=== PATIENT | female | born 1935 | race Hispanic/Latino ===

== ENCOUNTER → 2017-12-22 | Outpatient (CLI) | payer MEDICARE | END | disposition home or self-care (01) | LOC: SHCH 09:30 | PROVIDERS: ATTEND Internal Medicine Cardiovascular Disease | DX: I73.9 Peripheral vascular disease, unspecified (principal); I87.2 Venous insufficiency (chronic) (peripheral) | CPT/HCPCS: 93925; 93970 ==

== ENCOUNTER → 2018-06-12 | Outpatient (CLI) | payer MEDICARE | END | disposition home or self-care (01) | LOC: SHCH 10:06 | PROVIDERS: ATTEND Internal Medicine Cardiovascular Disease | DX: I87.2 Venous insufficiency (chronic) (peripheral) (principal) | CPT/HCPCS: 93970 ==

== ENCOUNTER → 2018-08-04 | Outpatient (CLI) | payer MEDICARE | END | disposition home or self-care (01) | LOC: RAH 14:23 | PROVIDERS: ATTEND Internal Medicine Cardiovascular Disease | DX: I70.8 Atherosclerosis of other arteries (principal); M79.604 Pain in right leg; R20.0 Anesthesia of skin | CPT/HCPCS: 93926 ==

== ENCOUNTER 2020-07-25 09:00 | Inpatient (IN) | payer MEDICARE ==
[~2020-07-25] VITALS: Ht 160 cm; Wt 78.4 kg
[2020-07-25 12:20] LABS: EOSINOPHILS % (AUTO) 5.6 % (0.0-8.0); HEMATOCRIT 37.6 % (36-48); LYMPHOCYTES % (AUTO) 25.8 % (21.0-51.0); MEAN CORPUSCULAR HEMOGLOBIN 32.2 pg (27.0-33.0); MEAN CORPUSCULAR VOLUME 94.7 fL (79-99); MONOCYTES % (AUTO) 4.8 % (3.0-13.0); NEUTROPHILS % (AUTO) 62.6 % (40.0-77.0); PLATELET COUNT (AUTO) 252 K/uL (130-400); RED BLOOD CELL COUNT(AUTO) 3.97 MIL/uL (4.00-5.50); RED CELL DISTRIBUTION WIDTH 13.2 % (11.0-15.5); WHITE BLOOD COUNT (AUTO) 6.3 K/uL (4.8-10.8)
[2020-07-25 12:30] LABS: CREATININE 0.9 mg/dL (0.5-1.5); POTASSIUM 4.9 mmol/L (3.5-5.1)
[2020-07-25 12:39] LABS: INR 0.94 (0.85-1.15); PROTHROMBIN TIME 10.1 SEC (9.6-11.6)
[2020-07-25 12:41] LABS: APPEARANCE,URINE SL CLOUDY (CLEAR); BILIRUBIN,URINE NEGATIVE (NEGATIVE); COLOR,URINE YELLOW (YELLOW); GLUCOSE, URINE (UA) NEGATIVE (NEGATIVE); KETONES,URINE NEGATIVE (NEGATIVE); OCCULT BLOOD,URINE MODERATE (NEGATIVE); PH,URINE 7.5 (5.0-8.0); PROTEIN,URINE NEGATIVE (NEGATIVE); UROBILINOGEN,URINE 0.2 mg/dL (0.2-1.0)
[2020-07-25 12:42] LABS: LEUKOCYTE ESTERASE ,URINE LARGE (NEGATIVE); NITRATE,URINE NEGATIVE (NEGATIVE)
[2020-07-25 13:29] LABS: BACTERIA,URINE Moderate /HPF (None Seen); RBC,URINE 0-1 /HPF (0-1)
[2020-07-29 09:04] VITALS: BP 184/62
[2020-07-30] VITALS (21 sets, daily range): BP systolic 124–159; BP diastolic 54–80
[2020-07-30] MEDS ORDERED: LACTATED RINGERS 1000ML 1,000 ML IV ONE (07:30)
[2020-07-30] MEDS: CEFAZOLIN SODIUM 1 GM VIAL IVP SCH ×3 (08:00→20:07)
[2020-07-30] MEDS ORDERED: GENTAMICIN SULFATE 240 MG in SODIUM CHLORIDE 0.9% 100 ML IV PRN (08:00)
[2020-07-30] MEDS ORDERED: CALC600T15 PO (08:21)
[2020-07-30] MEDS ORDERED: MULT-1258 PO (08:21)
[2020-07-30] MEDS ORDERED: ROPI2TAB7 PO (08:21)
[2020-07-30] MEDS ORDERED: BIMA12.5OS OD (08:21)
[2020-07-30] MEDS ORDERED: LEVO88CA4 PO (08:21)
[2020-07-30] MEDS ORDERED: CLOP75TA32 PO (08:21)
[2020-07-30] MEDS ORDERED: TIMO1DRO5 OP (08:21)
[2020-07-30] MEDS ORDERED: LOSA100T58 PO (08:21)
[2020-07-30] MEDS ORDERED: ACET-2123 PO (08:21)
[2020-07-30] MEDS ORDERED: ROPI6TAB2 PO (08:21)
[2020-07-30] MEDS ORDERED: BETA1TAB18 PO (08:21)
[2020-07-30] MEDS ORDERED: AMLO2.5T4 PO (08:21)
[2020-07-30] MEDS ORDERED: ROSU10TA28 PO (08:21)
[2020-07-30] MEDS ORDERED: KETOROLAC TROMETHAMINE 15MG/ML ONE (10:43)
[2020-07-30] MEDS ORDERED: ACETAMINOPHEN EXTRA STRENGTH 500 MG TABLET ONE (10:43)
[2020-07-30] MEDS ORDERED: CELECOXIB 200 MG CAP ONE (10:43)
[2020-07-30] MEDS ORDERED: CEFAZOLIN SODIUM 1 GM VIAL ONE (11:00)
[2020-07-30] MEDS ORDERED: TRANEXAMIC ACID 1000MG/10ML ONE ×2 (11:01→14:58)
[2020-07-30] MEDS ORDERED: PROPOFOL 10 MG/ML 20ML VIAL IV ONE (11:05)
[2020-07-30] MEDS ORDERED: LIDOCAINE PF 2% 5ML ABBOJECT ONE (11:05)
[2020-07-30] MEDS ORDERED: MIDAZOLAM HCL 1 MG/ML 2ML VIAL ONE (11:05)
[2020-07-30] MEDS ORDERED: SUCCINYLCHOLINE CHLORIDE 20 MG/ML 10 ML VIAL ONE (11:05)
[2020-07-30] MEDS ORDERED: DEXAMETHASONE SOD PHOSPHATE 10MG/ML 1ML VIAL ONE (11:05)
[2020-07-30] MEDS ORDERED: GLYCOPYRROLATE 1 MG/5 ML SYRINGE ONE (11:05)
[2020-07-30] MEDS ORDERED: FENTANYL CITRATE PF 50 MCG/1 ML 2ML VIAL ONE (11:06)
[2020-07-30] MEDS ORDERED: ONDANSETRON HCL 4 MG/2 ML VIAL ONE (11:06)
[2020-07-30] MEDS ORDERED: ROCURONIUM 10MG/1ML SYR 10 MG/ML ML ONE (11:06)
[2020-07-30] MEDS ORDERED: NEOSTIGMINE 5MG/5ML SYR IV ONE (11:06)
[2020-07-30] MEDS ORDERED: MEPERIDINE-PF 25 MG/ML SYG ONE (11:07)
[2020-07-30] MEDS ORDERED: ROPIVACAINE 0.5% 5MG/ML 30ML IJ ONE (11:09)
[2020-07-30] MEDS ORDERED: EPHEDRINE SULFATE 50 MG/ML AMPULE ONE (12:33)
[2020-07-30] MEDS ORDERED: HETASTARCH IN 0.9 % NACL 500 ML IV ONE (13:02)
[2020-07-30] MEDS ORDERED: CEFAZOLIN SODIUM 1 GM VIAL IRRIG ONE (13:45)
[2020-07-30] MEDS ORDERED: POTASSIUM CHLORIDE 20 MEQ ERTAB PO PRN (14:45)
[2020-07-30] MEDS ORDERED: ONDANSETRON HCL 4 MG/2 ML VIAL IVP PRN (14:45)
[2020-07-30] MEDS ORDERED: CALCIUM CARBONATE 500 MG TABLET PO PRN (14:45)
[2020-07-30] MEDS ORDERED: POTASSIUM CHLORIDE 10% ELIXIR 20 MEQ/15 ML UDCUP PO PRN (14:45)
[2020-07-30] MEDS ORDERED: KETOROLAC TROMETHAMINE 15MG/ML IV PRN (14:45)
[2020-07-30] MEDS ORDERED: DiphenhydrAMINE HCL 50 MG/ML VIAL IVP PRN (14:45)
[2020-07-30] MEDS: SODIUM CHLORIDE 0.9% 1000ML 1,000 ML IV SCH ×2 (14:45→20:08)
[2020-07-30] MEDS: ACETAMINOPHEN EXTRA STRENGTH 500 MG TABLET PO SCH ×2 (14:45→20:08)
[2020-07-30] MEDS ORDERED: TEMAZEPAM 15 MG CAPSULE PO PRN (14:45)
[2020-07-30] MEDS ORDERED: OXYCODONE HCL 5 MG TAB PO PRN (14:45)
[2020-07-30] MEDS ORDERED: LIDOCAINE HCL-MPF 1% 2ML VIAL IV PRN (14:45)
[2020-07-30] MEDS ORDERED: POTASSIUM CHLORIDE 20MEQ/100ML 100 ML IV PRN (14:45)
[2020-07-30] MEDS ORDERED: ROPINIROLE HCL 1 MG TABLET PO PRN (19:15)
[2020-07-30] MEDS: PREGABALIN 25 MG CAP PO SCH (20:07)
[2020-07-30] MEDS: FAMOTIDINE 20MG TAB 20 MG TAB PO SCH (20:07)
[2020-07-30] MEDS: OXYCODONE HCL 5 MG TAB PO PRN (20:41)
[2020-07-30] MEDS: CELECOXIB 200 MG CAP PO SCH (21:00)
[2020-07-30] MEDS: ATORVASTATIN CALCIUM 20 MG TABLET PO SCH (21:00)
[2020-07-31] VITALS (7 sets, daily range): BP systolic 96–139; BP diastolic 51–64
[2020-07-31] MEDS: OXYCODONE HCL 5 MG TAB PO PRN ×4 (01:51→19:42)
[2020-07-31] MEDS: CEFAZOLIN SODIUM 1 GM VIAL IVP SCH (03:55)
[2020-07-31] MEDS ORDERED: LEVOTHYROXINE 88 MCG TABLET ONE (05:18)
[2020-07-31] MEDS: LEVOTHYROXINE 88 MCG TABLET PO SCH (05:23)
[2020-07-31] MEDS: ACETAMINOPHEN EXTRA STRENGTH 500 MG TABLET PO SCH ×3 (05:23→22:42)
[2020-07-31 05:55] LABS: HEMATOCRIT 26.5 % (36-48); MEAN CORPUSCULAR HEMOGLOBIN 31.3 pg (27.0-33.0); MEAN CORPUSCULAR HGB CONC 33.6 g/dL (32.0-36.0); MEAN CORPUSCULAR VOLUME 93.3 fL (79-99); RED BLOOD CELL COUNT(AUTO) 2.84 MIL/uL (4.00-5.50); RED CELL DISTRIBUTION WIDTH 13.1 % (11.0-15.5)
[2020-07-31 06:14] LABS: CREATININE 0.8 mg/dL (0.5-1.5); POTASSIUM 4.7 mmol/L (3.5-5.1)
[2020-07-31] MEDS: CALCIUM CARBONATE 500 MG TABLET PO SCH (08:19)
[2020-07-31] MEDS: FERROUS FUMARATE 324 MG TABLET PO PRN (08:19)
[2020-07-31] MEDS: LOSARTAN 100 MG TABLET PO SCH (08:19)
[2020-07-31] MEDS: POLYETHYLENE GLYCOL 3350 17 GM POWD.PACK PO SCH (08:19)
[2020-07-31] MEDS: PREGABALIN 25 MG CAP PO SCH ×2 (08:19→19:44)
[2020-07-31] MEDS: CELECOXIB 200 MG CAP PO SCH ×2 (08:20→19:44)
[2020-07-31] MEDS: MULTIVITAMIN WITH MINERALS TABLET PO SCH (08:20)
[2020-07-31] MEDS: FAMOTIDINE 20MG TAB 20 MG TAB PO SCH ×2 (08:21→19:45)
[2020-07-31] MEDS: APIXABAN 2.5 MG TABLET PO SCH ×2 (08:21→19:44)
[2020-07-31] MEDS: AMLODIPINE BESYLATE 2.5 MG TAB PO SCH (08:24)
[2020-07-31] MEDS: MINERALS PO SCH (08:24)
[2020-07-31] MEDS: [UNRECOGNIZED DRUG - OTHER] PO SCH (08:24)
[2020-07-31] MEDS: VIT A C PO SCH (08:24)
[2020-07-31] MEDS: LUTEIN PO SCH (08:24)
[2020-07-31] MEDS: TIMOLOL MALEATE 0.5% 5 ML BOTTLE OP SCH (09:57)
[2020-07-31] MEDS: LATANOPROST 2.5 ML DROPS OD SCH (09:57)
[2020-07-31] MEDS: SODIUM CHLORIDE 0.9% 1000ML 1,000 ML IV SCH (10:45)
[2020-07-31] MEDS: ROPINIROLE HCL 1 MG TABLET PO PRN (18:38)
[2020-07-31] MEDS: ATORVASTATIN CALCIUM 20 MG TABLET PO SCH (19:44)
[2020-08-01 04:21] VITALS: BP 108/53
[2020-08-01] MEDS: OXYCODONE HCL 5 MG TAB PO PRN (05:26)
[2020-08-01] MEDS: LEVOTHYROXINE 88 MCG TABLET PO SCH (05:26)
[2020-08-01] MEDS: ACETAMINOPHEN EXTRA STRENGTH 500 MG TABLET PO SCH ×2 (05:27→14:45)
[2020-08-01 05:33] LABS: HEMATOCRIT 25.7 % (36-48)
[2020-08-01 08:00] VITALS: BP 124/57
[2020-08-01] MEDS: LOSARTAN 100 MG TABLET PO SCH (08:27)
[2020-08-01] MEDS: PREGABALIN 25 MG CAP PO SCH (08:27)
[2020-08-01] MEDS: APIXABAN 2.5 MG TABLET PO SCH (08:27)
[2020-08-01] MEDS: FAMOTIDINE 20MG TAB 20 MG TAB PO SCH (08:27)
[2020-08-01] MEDS: CELECOXIB 200 MG CAP PO SCH (08:27)
[2020-08-01] MEDS: CALCIUM CARBONATE 500 MG TABLET PO SCH (08:27)
[2020-08-01] MEDS: FERROUS FUMARATE 324 MG TABLET PO PRN (08:27)
[2020-08-01] MEDS: MULTIVITAMIN WITH MINERALS TABLET PO SCH (08:27)
[2020-08-01] MEDS: POLYETHYLENE GLYCOL 3350 17 GM POWD.PACK PO SCH (08:27)
[2020-08-01] MEDS: MINERALS PO SCH (08:29)
[2020-08-01] MEDS: VIT A C PO SCH (08:29)
[2020-08-01] MEDS: [UNRECOGNIZED DRUG - OTHER] PO SCH (08:29)
[2020-08-01] MEDS: LUTEIN PO SCH (08:29)
[2020-08-01] MEDS: AMLODIPINE BESYLATE 2.5 MG TAB PO SCH (08:31)
[2020-08-01] MEDS: TIMOLOL MALEATE 0.5% 5 ML BOTTLE OP SCH (10:49)
[2020-08-01] MEDS: LATANOPROST 2.5 ML DROPS OD SCH (10:49)
[2020-08-01] MEDS: ROPINIROLE HCL 1 MG TABLET PO PRN ×2 (10:53→18:43)
[2020-08-01] MEDS: TRAMADOL HCL 50 MG TABLET PO PRN ×2 (11:33→18:44)
[2020-08-01 12:00] VITALS: BP 141/63
[2020-08-01] MEDS ORDERED: HYDR-4457 PO (15:56)
[2020-08-01] MEDS ORDERED: APIX2.5T PO (15:56)
[2020-08-01 16:00] VITALS: BP 127/56
[2020-08-02] MEDS ORDERED: BISACODYL 10 MG SUPP.RECT RC PRN (14:45)
== END 2020-08-01 20:00 | DRG 470 ==
LOC: EDSTATUS 09:00 → DAHIP 07-30 07:24 → UNDOADMIN 07-30 07:24 → 3BH 07-30 16:10
PROVIDERS: ADMIT Orthopaedic Surgery; ATTEND Orthopaedic Surgery
PROC: 0SRC0J9 Replacement of Right Knee Joint with Synthetic Substitute, Cemented, Open Approach (ICD-10-PCS; principal; 2020-07-30 13:32)
DX: M17.11 Unilateral primary osteoarthritis, right knee (principal); Z20.828 Contact with and (suspected) exposure to other viral communicable diseases; I10 Essential (primary) hypertension; E78.5 Hyperlipidemia, unspecified; G89.29 Other chronic pain; I25.10 Atherosclerotic heart disease of native coronary artery without angina pectoris; K21.9 Gastro-esophageal reflux disease without esophagitis; E89.0 Postprocedural hypothyroidism; I87.2 Venous insufficiency (chronic) (peripheral); Z90.49 Acquired absence of other specified parts of digestive tract; Z88.8 Allergy status to other drugs, medicaments and biological substances; Z88.6 Allergy status to analgesic agent
CPT/HCPCS: 36415; 80048; 81001; 85014; 85018; 85025; 85027; 85610; 87088; 87641; 97039; G0378; J0330; J0690; J1100; J1885; J2001; J2175; J2250; J2405; J2704; J2710; J2795; J3010; J3490; J7120; U0003

== ENCOUNTER 2020-08-15 14:33 | Emergency (ER) | payer MEDICARE ==
[~2020-08-15 14:33] MED LIST: ACET-2123 PO; AMLO2.5T4 PO; APIX2.5T PO; BETA1TAB18 PO; BIMA12.5OS OD; CALC-1125 PO; HYDR-4457 PO; LEVO88CA4 PO; LOSA100T58 PO; MULT-1258 PO; ROPI2TAB7 PO; ROPI6TAB2 PO; ROSU10TA28 PO; TIMO1DRO5 OP
[2020-08-15] MEDS ORDERED: LACTULOSE 20 GM/30 ML UDCUP ONE (15:47)
[2020-08-15 15:54] LABS: BASOPHILS % (AUTO) 0.7 % (0.0-5.0); EOSINOPHILS % (AUTO) 4.6 % (0.0-8.0); HEMATOCRIT 26.4 % (36-48); LYMPHOCYTES % (AUTO) 17.2 % (21.0-51.0); MEAN CORPUSCULAR HEMOGLOBIN 31.6 pg (27.0-33.0); MEAN CORPUSCULAR HGB CONC 34.1 g/dL (32.0-36.0); MEAN CORPUSCULAR VOLUME 92.6 fL (79-99); MONOCYTES % (AUTO) 6.4 % (3.0-13.0); NEUTROPHILS % (AUTO) 70.9 % (40.0-77.0); PLATELET COUNT (AUTO) 458 K/uL (130-400); RED BLOOD CELL COUNT(AUTO) 2.85 MIL/uL (4.00-5.50); RED CELL DISTRIBUTION WIDTH 13.1 % (11.0-15.5); WHITE BLOOD COUNT (AUTO) 9.2 K/uL (4.8-10.8)
[2020-08-15 16:00] LABS: APPEARANCE,URINE Clear (CLEAR); BILIRUBIN,URINE Negative (NEGATIVE); COLOR,URINE Yellow (YELLOW); GLUCOSE, URINE (UA) Negative (NEGATIVE); KETONES,URINE Negative (NEGATIVE); LEUKOCYTE ESTERASE ,URINE Negative (NEGATIVE); NITRATE,URINE Negative (NEGATIVE); OCCULT BLOOD,URINE Moderate (NEGATIVE); PH,URINE 6.5 (5.0-8.0); PROTEIN,URINE Negative (NEGATIVE); UROBILINOGEN,URINE 0.2 mg/dL (0.2-1.0)
[2020-08-15 16:03] LABS: CREATININE 0.9 mg/dL (0.5-1.5); POTASSIUM 4.2 mmol/L (3.5-5.1)
[2020-08-15 16:08] LABS: ALBUMIN 3.4 g/dL (3.5-5.0); BILIRUBIN,TOTAL 0.3 mg/dL (0.2-1.0); TOTAL PROTEIN, SERUM 6.8 g/dL (6.0-8.3)
[2020-08-15] MEDS ORDERED: 0.9%NACL 1000ML 1,000 ML IV ONE (16:45)
[2020-08-15] MEDS ORDERED: IOHEXOL-350 75 ML VIAL IV ONE (16:58)
== END 2020-08-15 19:19 | disposition home or self-care (01) ==
LOC: EDH 14:33
DX: K56.7 Ileus, unspecified (principal); R33.9 Retention of urine, unspecified; E78.5 Hyperlipidemia, unspecified; I10 Essential (primary) hypertension; E03.9 Hypothyroidism, unspecified; Z90.49 Acquired absence of other specified parts of digestive tract; Z88.8 Allergy status to other drugs, medicaments and biological substances; Z88.6 Allergy status to analgesic agent; Z88.3 Allergy status to other anti-infective agents
CPT/HCPCS: 36415; 74177; 80053; 81003; 83690; 85025; 99285; J7030; Q9967

== ENCOUNTER 2020-08-21 15:48 | Observation (INO) | payer MEDICARE ==
[~2020-08-21 15:48] MED LIST changes: -CALC-1125 PO; +CALC600T15 PO
[2020-08-21 16:17] LABS: APPEARANCE,URINE CLEAR (CLEAR); BILIRUBIN,URINE NEGATIVE (NEGATIVE); COLOR,URINE YELLOW (YELLOW); GLUCOSE, URINE (UA) NEGATIVE (NEGATIVE); KETONES,URINE NEGATIVE (NEGATIVE); LEUKOCYTE ESTERASE ,URINE NEGATIVE (NEGATIVE); NITRATE,URINE NEGATIVE (NEGATIVE); OCCULT BLOOD,URINE MODERATE (NEGATIVE); PH,URINE 6.5 (5.0-8.0); PROTEIN,URINE NEGATIVE (NEGATIVE); UROBILINOGEN,URINE 0.2 mg/dL (0.2-1.0)
[2020-08-21 16:41] LABS: BACTERIA,URINE Few /HPF (None Seen); WBC,URINE 0-1 /HPF (0-1)
[2020-08-21 16:42] LABS: SQUAMOUS EPITHELIAL CELL,UR Rare /HPF (0-2); TRANSITIONAL EPI CELLS,URINE Few /HPF (None Seen)
[2020-08-21 16:53] LABS: BASOPHILS % (AUTO) 0.6 % (0.0-5.0); EOSINOPHILS % (AUTO) 3.9 % (0.0-8.0); HEMATOCRIT 27.4 % (36-48); LYMPHOCYTES % (AUTO) 17.4 % (21.0-51.0); MEAN CORPUSCULAR HEMOGLOBIN 30.8 pg (27.0-33.0); MEAN CORPUSCULAR HGB CONC 34.3 g/dL (32.0-36.0); MEAN CORPUSCULAR VOLUME 89.8 fL (79-99); MONOCYTES % (AUTO) 7.6 % (3.0-13.0); NEUTROPHILS % (AUTO) 70.2 % (40.0-77.0); PLATELET COUNT (AUTO) 416 K/uL (130-400); RED BLOOD CELL COUNT(AUTO) 3.05 MIL/uL (4.00-5.50); RED CELL DISTRIBUTION WIDTH 12.9 % (11.0-15.5); WHITE BLOOD COUNT (AUTO) 7.2 K/uL (4.8-10.8)
[2020-08-21 17:09] LABS: ALBUMIN 3.4 g/dL (3.5-5.0); BILIRUBIN,TOTAL 0.4 mg/dL (0.2-1.0); CREATININE 0.8 mg/dL (0.5-1.5); POTASSIUM 4.1 mmol/L (3.5-5.1); TOTAL PROTEIN, SERUM 6.6 g/dL (6.0-8.3)
[2020-08-21] MEDS ORDERED: SODIUM CHLORIDE 0.9% 1000ML 1,000 ML IV ONE ×2 (17:22→23:26)
[2020-08-21] MEDS ORDERED: SODIUM CHLORIDE 0.9% 1000ML 1,000 ML IV SCH (23:00)
[2020-08-21] MEDS ORDERED: LACTULOSE 20 GM/30 ML UDCUP PO ONE (23:00)
[2020-08-21] MEDS ORDERED: ONDANSETRON HCL 4 MG/2 ML VIAL IV PRN (23:00)
[2020-08-21] MEDS ORDERED: ENOXAPARIN SODIUM 40 MG/0.4 ML SYRINGE SQ ONE (23:28)
[2020-08-21] MEDS ORDERED: LACTULOSE 20 GM/30 ML UDCUP ONE (23:28)
[2020-08-22] MEDS ORDERED: ACETAMINOPHEN 325 MG TAB ONE (00:34)
[2020-08-22 01:22] LABS: CREATININE 0.8 mg/dL (0.5-1.5); POTASSIUM 4.1 mmol/L (3.5-5.1)
[2020-08-22] MEDS ORDERED: LEVOTHYROXINE 75 MCG TABLET PO SCH (06:30)
[2020-08-22] MEDS ORDERED: LACTULOSE 20 GM/30 ML UDCUP ONE (06:51)
[2020-08-22] MEDS ORDERED: LUBI24CA2 PO (06:56)
[2020-08-22] MEDS ORDERED: LACTULOSE 20 GM/30 ML UDCUP PO SCH (07:00)
[2020-08-22] MEDS ORDERED: LUBIPROSTONE 24 MCG CAP PO SCH (07:00)
[2020-08-22] MEDS ORDERED: ROPINIROLE HCL 1 MG TABLET PO SCH (07:30)
[2020-08-22] MEDS ORDERED: CLOPIDOGREL BISULFATE 75 MG TAB PO SCH (09:00)
[2020-08-22] MEDS ORDERED: FAMOTIDINE 20MG TAB 20 MG TAB PO SCH (09:00)
[2020-08-22] MEDS ORDERED: LOSARTAN 100 MG TABLET PO SCH (09:00)
[2020-08-22] MEDS ORDERED: ENOXAPARIN SODIUM 40 MG/0.4 ML SYRINGE SQ SCH (09:00)
[2020-08-22] MEDS ORDERED: TIMOLOL MALEATE 0.5% 5 ML BOTTLE OU SCH (09:00)
[2020-08-22] MEDS ORDERED: AMLODIPINE BESYLATE 5 MG TAB PO SCH (09:00)
[2020-08-22] MEDS ORDERED: ROPINIROLE HCL 5 MG TABLET PO SCH (17:00)
[2020-08-22] MEDS ORDERED: ATORVASTATIN CALCIUM 40 MG TABLET PO SCH (21:00)
== END 2020-08-22 09:58 | disposition home or self-care (01) ==
LOC: EDH 15:48 → EDHIP 22:54
PROVIDERS: ADMIT Internal Medicine; ATTEND Internal Medicine
DX: R33.8 Other retention of urine (principal); Z20.828 Contact with and (suspected) exposure to other viral communicable diseases; K59.03 Drug induced constipation; T40.2X5A Adverse effect of other opioids, initial encounter; Z96.651 Presence of right artificial knee joint; E87.1 Hypo-osmolality and hyponatremia; I10 Essential (primary) hypertension; E78.5 Hyperlipidemia, unspecified; E03.9 Hypothyroidism, unspecified; K21.9 Gastro-esophageal reflux disease without esophagitis; G25.81 Restless legs syndrome; F17.200 Nicotine dependence, unspecified, uncomplicated; Z90.49 Acquired absence of other specified parts of digestive tract; Z79.02 Long term (current) use of antithrombotics/antiplatelets; Z79.01 Long term (current) use of anticoagulants; Z79.899 Other long term (current) drug therapy; Z88.6 Allergy status to analgesic agent; Z88.8 Allergy status to other drugs, medicaments and biological substances; X58.XXXA Exposure to other specified factors, initial encounter; Y93.89 Activity, other specified; Y92.89 Other specified places as the place of occurrence of the external cause
CPT/HCPCS: 36415 ×2; 71045; 74176; 80048; 80053; 81001; 84443; 85025; 87426; 99291; G0378 ×11; J1650; J7030 ×2

== ENCOUNTER 2020-09-07 13:07 | Emergency (ER) | payer MEDICARE ==
[~2020-09-07 13:07] MED LIST changes: -HYDR-4457 PO; +LUBI24CA2 PO
[2020-09-07 14:03] LABS: EOSINOPHILS % (AUTO) 5.8 % (0.0-8.0); LYMPHOCYTES % (AUTO) 20.7 % (21.0-51.0); MEAN CORPUSCULAR HGB CONC 34.1 g/dL (32.0-36.0); MEAN CORPUSCULAR VOLUME 90.9 fL (79-99); NEUTROPHILS % (AUTO) 65.1 % (40.0-77.0); PLATELET COUNT (AUTO) 309 K/uL (130-400); RED BLOOD CELL COUNT(AUTO) 3.19 MIL/uL (4.00-5.50); RED CELL DISTRIBUTION WIDTH 13.1 % (11.0-15.5)
[2020-09-07 14:05] LABS: APPEARANCE,URINE Clear (CLEAR); BILIRUBIN,URINE Negative (NEGATIVE); COLOR,URINE Yellow (YELLOW); GLUCOSE, URINE (UA) Negative (NEGATIVE); KETONES,URINE Negative (NEGATIVE); LEUKOCYTE ESTERASE ,URINE Trace (NEGATIVE); NITRATE,URINE Negative (NEGATIVE); OCCULT BLOOD,URINE Moderate (NEGATIVE); PH,URINE 7.5 (5.0-8.0); PROTEIN,URINE Negative (NEGATIVE); UROBILINOGEN,URINE 0.2 mg/dL (0.2-1.0)
[2020-09-07 14:24] LABS: ALBUMIN 3.8 g/dL (3.5-5.0); BILIRUBIN,TOTAL 0.3 mg/dL (0.2-1.0); CREATININE 0.7 mg/dL (0.5-1.5); POTASSIUM 4.2 mmol/L (3.5-5.1); TOTAL PROTEIN, SERUM 7.2 g/dL (6.0-8.3)
[2020-09-07] MEDS ORDERED: PHENAZOPYRIDINE HCL 200 MG TABLET ONE (14:33)
[2020-09-07 14:49] LABS: BACTERIA,URINE Few /HPF (None Seen); SQUAMOUS EPITHELIAL CELL,UR Few /HPF (0-2)
== END 2020-09-07 16:29 | disposition home or self-care (01) ==
LOC: EDH 13:07
DX: R33.9 Retention of urine, unspecified (principal); E87.1 Hypo-osmolality and hyponatremia; I10 Essential (primary) hypertension; E78.5 Hyperlipidemia, unspecified; E03.9 Hypothyroidism, unspecified; Z88.8 Allergy status to other drugs, medicaments and biological substances; Z88.6 Allergy status to analgesic agent
CPT/HCPCS: 36415; 51702; 80053; 81001; 83605; 85025

== ENCOUNTER → 2021-01-28 | Outpatient (CLI) | payer MEDICARE ==
[~2021-01-28] MED LIST changes: +CALC-1125 PO; -CALC600T15 PO
== END | disposition home or self-care (01) ==
LOC: SHCH 14:41
PROVIDERS: ATTEND Internal Medicine Cardiovascular Disease
DX: I87.2 Venous insufficiency (chronic) (peripheral) (principal); I83.892 Varicose veins of left lower extremity with other complications
CPT/HCPCS: 93970

== ENCOUNTER → 2021-12-24 | Outpatient (CLI) | payer MEDICARE | END | disposition home or self-care (01) | LOC: SHCH 14:33 | PROVIDERS: ATTEND Internal Medicine Cardiovascular Disease | DX: I87.2 Venous insufficiency (chronic) (peripheral) (principal) | CPT/HCPCS: 93970 ==

== ENCOUNTER 2022-03-01 09:56 | Observation (INO) | payer MEDICARE ==
[2022-02-26 09:59] LABS: BASOPHILS % (AUTO) 0.6 % (0.0-5.0); EOSINOPHILS % (AUTO) 3.6 % (0.0-8.0); HEMATOCRIT 36.7 % (36-48); LYMPHOCYTES % (AUTO) 23.2 % (21.0-51.0); MEAN CORPUSCULAR HEMOGLOBIN 31.5 pg (27.0-33.0); MEAN CORPUSCULAR VOLUME 95.6 fL (79-99); NEUTROPHILS % (AUTO) 65.1 % (40.0-77.0); PLATELET COUNT (AUTO) 213 K/uL (130-400); RED BLOOD CELL COUNT(AUTO) 3.84 MIL/uL (4.00-5.50); RED CELL DISTRIBUTION WIDTH 13.1 % (11.0-15.5); WHITE BLOOD COUNT (AUTO) 6.2 K/uL (4.8-10.8)
[2022-02-26 10:13] LABS: CREATININE 0.8 mg/dL (0.5-1.5); POTASSIUM 4.7 mmol/L (3.5-5.1)
[2022-02-26 10:15] LABS: INR 0.93 (0.85-1.15); PROTHROMBIN TIME 10.1 SEC (9.6-11.6)
[2022-02-26 10:41] LABS: APPEARANCE,URINE CLOUDY (CLEAR); BILIRUBIN,URINE NEGATIVE (NEGATIVE); COLOR,URINE YELLOW (YELLOW); GLUCOSE, URINE (UA) NEGATIVE (NEGATIVE); KETONES,URINE NEGATIVE (NEGATIVE); LEUKOCYTE ESTERASE ,URINE LARGE (NEGATIVE); NITRATE,URINE POSITIVE (NEGATIVE); OCCULT BLOOD,URINE LARGE (NEGATIVE); PROTEIN,URINE NEGATIVE (NEGATIVE); UROBILINOGEN,URINE 0.2 mg/dL (0.2-1.0)
[2022-02-26 10:51] VITALS: BP 155/70
[2022-02-26 10:54] LABS: BACTERIA,URINE Many /HPF (None Seen); RBC,URINE 0-1 /HPF (0-1); SQUAMOUS EPITHELIAL CELL,UR Few /HPF (0-2); WBC,URINE 51-100 /HPF (0-1)
[~2022-03-01] VITALS: Ht 160 cm; Wt 82.9 kg
[2022-03-01] VITALS (26 sets, daily range): BP systolic 101–160; BP diastolic 42–84
[~2022-03-01 09:56] MED LIST changes: -ACET-2123 PO; -APIX2.5T PO; -BETA1TAB18 PO; -BIMA12.5OS OD; -CALC-1125 PO; +CLOP75TA32 PO; +GENTAMICIN SULFATE 240 MG in 0.9%NACL 100ML 100 ML IV SCH; -LUBI24CA2 PO; -MULT-1258 PO; -ROPI2TAB7 PO; +ROPI4TAB6 PO; -ROPI6TAB2 PO; -TIMO1DRO5 OP
[2022-03-01] MEDS ORDERED: CEFAZOLIN SODIUM 1 GM VIAL ONE ×4 (10:23→19:29)
[2022-03-01] MEDS ORDERED: LACTATED RINGERS 1000ML 1,000 ML IV ONE (10:23)
[2022-03-01] MEDS ORDERED: PROPOFOL 10 MG/ML 20ML VIAL IV ONE (13:59)
[2022-03-01] MEDS ORDERED: ROCURONIUM 10MG/1ML SYR 10 MG/ML ML ONE ×2 (14:00→14:56)
[2022-03-01] MEDS ORDERED: MIDAZOLAM HCL 1 MG/ML 2ML VIAL ONE (14:00)
[2022-03-01] MEDS ORDERED: FENTANYL CITRATE PF 50 MCG/1 ML 2ML VIAL ONE ×3 (14:00→17:30)
[2022-03-01] MEDS ORDERED: DEXAMETHASONE SOD PHOSPHATE 10MG/ML 1ML VIAL ONE (14:29)
[2022-03-01] MEDS ORDERED: ROPIVACAINE 0.5% 5MG/ML 30ML IJ ONE (14:30)
[2022-03-01] MEDS ORDERED: MEPERIDINE-PF 25 MG/ML SYG ONE (16:52)
[2022-03-01] MEDS ORDERED: ONDANSETRON 4MG INJ ONE ×2 (16:56→17:05)
[2022-03-01] MEDS ORDERED: FERROUS FUMARATE 324 MG TABLET PO PRN (17:00)
[2022-03-01] MEDS ORDERED: DiphenhydrAMINE HCL 50 MG/ML VIAL IVP PRN (17:00)
[2022-03-01] MEDS ORDERED: CALCIUM CARB 500MG PO PRN (17:00)
[2022-03-01] MEDS ORDERED: POTASSIUM CHLORIDE 20MEQ/100ML 100 ML IV PRN (17:00)
[2022-03-01] MEDS ORDERED: KCL 20 MEQ ERTAB PO PRN (17:00)
[2022-03-01] MEDS ORDERED: 0.9%NACL 1000ML 1,000 ML IV SCH (17:00)
[2022-03-01] MEDS ORDERED: TRAMADOL HCL 50 MG TABLET PO PRN (17:00)
[2022-03-01] MEDS ORDERED: POTASSIUM CHLORIDE 10% ELIXIR 20 MEQ/15 ML UDCUP PO PRN (17:00)
[2022-03-01] MEDS ORDERED: LIDOCAINE HCL-MPF 1% 2ML VIAL IV PRN (17:00)
[2022-03-01] MEDS ORDERED: ONDANSETRON 4MG INJ IVP PRN (17:00)
[2022-03-01] MEDS ORDERED: GLYCOPYRROLATE 1 MG/5 ML SYRINGE ONE (17:05)
[2022-03-01] MEDS ORDERED: NEOSTIGMINE 5MG/5ML SYR IV ONE (17:06)
[2022-03-01] MEDS ORDERED: ROPINIROLE HCL 1 MG TABLET ONE (19:28)
[2022-03-01] MEDS ORDERED: ATORVASTATIN 20 MG TABLET ONE (19:28)
[2022-03-01] MEDS: CEFAZOLIN SODIUM 1 GM VIAL IVP SCH (19:34)
[2022-03-01] MEDS: ATORVASTATIN 20 MG TABLET PO SCH (19:34)
[2022-03-01] MEDS: ROPINIROLE HCL 1 MG TABLET PO SCH (19:34)
[2022-03-01] MEDS: ACETAMINOPHEN 500 MG TABLET PO SCH (19:35)
[2022-03-02] MEDS: ACETAMINOPHEN 500 MG TABLET PO SCH ×3 (01:05→16:16)
[2022-03-02 03:28] VITALS: BP 113/55
[2022-03-02] MEDS ORDERED: LEVOTHYROXINE 88 MCG TABLET ONE (04:44)
[2022-03-02 05:10] LABS: HEMATOCRIT 26.8 % (36-48); MEAN CORPUSCULAR VOLUME 94.4 fL (79-99); RED BLOOD CELL COUNT(AUTO) 2.84 MIL/uL (4.00-5.50); RED CELL DISTRIBUTION WIDTH 12.9 % (11.0-15.5); WHITE BLOOD COUNT (AUTO) 8.7 K/uL (4.8-10.8)
[2022-03-02 05:28] LABS: CREATININE 0.8 mg/dL (0.5-1.5); POTASSIUM 4.3 mmol/L (3.5-5.1)
[2022-03-02] MEDS: CEFAZOLIN SODIUM 1 GM VIAL IVP SCH (05:49)
[2022-03-02] MEDS: LEVOTHYROXINE 88 MCG TABLET PO SCH (05:49)
[2022-03-02 08:00] VITALS: BP 143/58
[2022-03-02] MEDS: OXYCODONE HCL 5 MG TAB PO PRN ×3 (08:31→21:13)
[2022-03-02] MEDS: POLYETHYLENE GLYCOL 3350 17 GM POWD.PACK PO SCH (09:37)
[2022-03-02] MEDS: ROPINIROLE HCL 1 MG TABLET PO SCH ×2 (09:38→20:09)
[2022-03-02] MEDS: AMLODIPINE 2.5 MG TAB PO SCH (09:38)
[2022-03-02] MEDS: LOSARTAN 100 MG TABLET PO SCH (09:38)
[2022-03-02] MEDS: APIXABAN 2.5 MG TABLET PO SCH ×2 (09:38→20:08)
[2022-03-02 11:45] VITALS: BP 132/62
[2022-03-02 16:00] VITALS: BP 157/60
[2022-03-02] MEDS: ATORVASTATIN 20 MG TABLET PO SCH (20:08)
[2022-03-02 20:51] VITALS: BP 155/68
[2022-03-03] MEDS: ACETAMINOPHEN 500 MG TABLET PO SCH ×3 (01:00→18:03)
[2022-03-03] MEDS: LEVOTHYROXINE 88 MCG TABLET PO SCH (05:02)
[2022-03-03 05:19] VITALS: BP 142/68
[2022-03-03 08:00] VITALS: BP 139/58
[2022-03-03] MEDS: LOSARTAN 100 MG TABLET PO SCH (08:25)
[2022-03-03] MEDS: AMLODIPINE 2.5 MG TAB PO SCH (08:25)
[2022-03-03] MEDS: POLYETHYLENE GLYCOL 3350 17 GM POWD.PACK PO SCH (08:25)
[2022-03-03] MEDS: ROPINIROLE HCL 1 MG TABLET PO SCH ×2 (08:25→20:18)
[2022-03-03] MEDS: APIXABAN 2.5 MG TABLET PO SCH ×2 (08:25→20:22)
[2022-03-03] MEDS: OXYCODONE HCL 5 MG TAB PO PRN (08:28)
[2022-03-03 11:43] VITALS: BP 117/54
[2022-03-03 16:00] VITALS: BP 153/72
[2022-03-03] MEDS: KETOROLAC 15MG/ML VIAL (15MG/ML) IV PRN (16:06)
[2022-03-03] MEDS: ATORVASTATIN 20 MG TABLET PO SCH (20:18)
[2022-03-03 21:02] VITALS: BP 129/62
[2022-03-03] MEDS: NITROFURANTOIN MONOHYD/M-CRYST 100 MG CAPSULE PO SCH (21:50)
[2022-03-03 23:50] VITALS: BP 110/55
[2022-03-04] MEDS: ACETAMINOPHEN 500 MG TABLET PO SCH ×2 (00:47→09:52)
[2022-03-04 03:56] VITALS: BP 119/63
[2022-03-04] MEDS: OXYCODONE HCL 5 MG TAB PO PRN (04:21)
[2022-03-04] MEDS: LEVOTHYROXINE 88 MCG TABLET PO SCH (05:52)
[2022-03-04 07:30] VITALS: BP 99/49
[2022-03-04] MEDS: KETOROLAC 15MG/ML VIAL (15MG/ML) IV PRN (08:45)
[2022-03-04] MEDS: NITROFURANTOIN MONOHYD/M-CRYST 100 MG CAPSULE PO SCH (09:51)
[2022-03-04] MEDS: AMLODIPINE 2.5 MG TAB PO SCH (09:51)
[2022-03-04] MEDS: APIXABAN 2.5 MG TABLET PO SCH (09:52)
[2022-03-04] MEDS: LOSARTAN 100 MG TABLET PO SCH (09:52)
[2022-03-04] MEDS: ROPINIROLE HCL 1 MG TABLET PO SCH (09:52)
[2022-03-04] MEDS: POLYETHYLENE GLYCOL 3350 17 GM POWD.PACK PO SCH (09:56)
[2022-03-04 11:00] VITALS: BP 126/59
[2022-03-04] MEDS ORDERED: NITR100C4 PO (14:53)
[2022-03-04] MEDS ORDERED: HYDR-4060 PO (14:53)
[2022-03-04] MEDS ORDERED: APIX2.5T PO (14:53)
[2022-03-04 16:00] VITALS: BP 121/60
[2022-03-04] MEDS ORDERED: BISACODYL 10 MG SUPP.RECT RC PRN (17:00)
== END 2022-03-04 18:30 ==
LOC: DAH 09:56 → DAHIP 09:57 → DAH 16:33 → 4AH 18:30
PROVIDERS: ADMIT Orthopaedic Surgery; ATTEND Orthopaedic Surgery
DX: M17.12 Unilateral primary osteoarthritis, left knee (principal); Z20.822 Contact with and (suspected) exposure to COVID-19; I10 Essential (primary) hypertension; E03.9 Hypothyroidism, unspecified; E78.5 Hyperlipidemia, unspecified; K21.9 Gastro-esophageal reflux disease without esophagitis; D64.9 Anemia, unspecified; I87.2 Venous insufficiency (chronic) (peripheral); M25.562 Pain in left knee; G89.29 Other chronic pain; N39.0 Urinary tract infection, site not specified; Z96.651 Presence of right artificial knee joint; Z79.899 Other long term (current) drug therapy
CPT/HCPCS: 80048 ×2; 85025; 85610; 87077; 87088; 87186; 87426; 81001; 36415 ×2; 87641; 27447; 96365; 96366; 96375 ×2; 76942; 64447; 97039 ×5; 96376 ×2; 85027; 97161; 97116 ×5; 97530 ×3; G0378 ×69; A4663; J7120 ×2; J3010 ×3; J0690 ×5; J3490; J1100; J2710; J1580; J2250; J2704; J2405 ×2; J2175; J2795; A9272; A4649 ×4; A4930 ×3; C1776; A5120; A4215; A4223; A4222; A4221; J1885 ×2

== ENCOUNTER 2022-04-15 15:30 | Emergency (ER) | payer MEDICARE ==
[~2022-04-15] VITALS: Ht 157.5 cm; Wt 74.8 kg
[~2022-04-15 15:30] MED LIST changes: +APIX2.5T PO; -CLOP75TA32 PO; -GENTAMICIN SULFATE 240 MG in 0.9%NACL 100ML 100 ML IV SCH; +HYDR-4060 PO; +NITR100C4 PO
[2022-04-15 15:33] VITALS: BP 159/77
[2022-04-15 16:20] LABS: BILIRUBIN,URINE NEGATIVE (NEGATIVE); COLOR,URINE YELLOW (YELLOW); GLUCOSE, URINE (UA) NEGATIVE (NEGATIVE); KETONES,URINE NEGATIVE (NEGATIVE); LEUKOCYTE ESTERASE ,URINE MODERATE (NEGATIVE); NITRATE,URINE NEGATIVE (NEGATIVE); OCCULT BLOOD,URINE MODERATE (NEGATIVE); PROTEIN,URINE NEGATIVE (NEGATIVE); UROBILINOGEN,URINE 0.2 mg/dL (0.2-1.0)
[2022-04-15 16:27] LABS: APPEARANCE,URINE SLIGHTLY CLOUDY (CLEAR)
[2022-04-15 16:30] LABS: BACTERIA,URINE Few /HPF (None Seen)
[2022-04-15 16:31] LABS: MUCUS,URINE Few LPF (None Seen); SQUAMOUS EPITHELIAL CELL,UR Few /HPF (0-2)
[2022-04-15 17:26] LABS: BASOPHILS % (AUTO) 0.8 % (0.0-5.0); EOSINOPHILS % (AUTO) 6.8 % (0.0-8.0); HEMATOCRIT 30.3 % (36-48); LYMPHOCYTES % (AUTO) 19.5 % (21.0-51.0); MEAN CORPUSCULAR HEMOGLOBIN 30.6 pg (27.0-33.0); MEAN CORPUSCULAR HGB CONC 33.7 g/dL (32.0-36.0); NEUTROPHILS % (AUTO) 63.3 % (40.0-77.0); PLATELET COUNT (AUTO) 283 K/uL (130-400); RED BLOOD CELL COUNT(AUTO) 3.33 MIL/uL (4.00-5.50); RED CELL DISTRIBUTION WIDTH 13.2 % (11.0-15.5); WHITE BLOOD COUNT (AUTO) 5.1 K/uL (4.8-10.8)
[2022-04-15 17:34] LABS: CREATININE 0.7 mg/dL (0.5-1.5); POTASSIUM 3.6 mmol/L (3.5-5.1)
[2022-04-15 17:39] LABS: ALBUMIN 3.5 g/dL (3.5-5.0); TOTAL PROTEIN, SERUM 7.3 g/dL (6.0-8.3)
== END 2022-04-15 18:44 | disposition home or self-care (01) ==
LOC: EDH 15:30
DX: R33.9 Retention of urine, unspecified (principal); M79.89 Other specified soft tissue disorders; M79.605 Pain in left leg; I10 Essential (primary) hypertension; I25.10 Atherosclerotic heart disease of native coronary artery without angina pectoris; E05.90 Thyrotoxicosis, unspecified without thyrotoxic crisis or storm; Z86.73 Personal history of transient ischemic attack (TIA), and cerebral infarction without residual deficits; Z79.899 Other long term (current) drug therapy; Z88.6 Allergy status to analgesic agent; Z88.1 Allergy status to other antibiotic agents; Z88.8 Allergy status to other drugs, medicaments and biological substances; Z98.890 Other specified postprocedural states
CPT/HCPCS: 36415; 51702; 74176; 80053; 81001; 85025; 87088; 93971

== ENCOUNTER 2022-04-20 23:14 | Emergency (ER) | payer MEDICARE ==
[~2022-04-20] VITALS: Ht 160 cm; Wt 80.3 kg
[2022-04-20 23:51] LABS: BASOPHILS % (AUTO) 0.3 % (0.0-5.0); EOSINOPHILS % (AUTO) 5.1 % (0.0-8.0); HEMATOCRIT 33.2 % (36-48); LYMPHOCYTES % (AUTO) 18.9 % (21.0-51.0); MEAN CORPUSCULAR HEMOGLOBIN 30.6 pg (27.0-33.0); MEAN CORPUSCULAR HGB CONC 33.4 g/dL (32.0-36.0); MEAN CORPUSCULAR VOLUME 91.5 fL (79-99); MONOCYTES % (AUTO) 7.1 % (3.0-13.0); PLATELET COUNT (AUTO) 280 K/uL (130-400); RED BLOOD CELL COUNT(AUTO) 3.63 MIL/uL (4.00-5.50); RED CELL DISTRIBUTION WIDTH 13.4 % (11.0-15.5)
[2022-04-20 23:58] LABS: CREATININE 0.8 mg/dL (0.5-1.5)
[2022-04-21 00:03] LABS: ALBUMIN 3.7 g/dL (3.5-5.0); TOTAL PROTEIN, SERUM 7.8 g/dL (6.0-8.3)
[2022-04-21 00:52] LABS: APPEARANCE,URINE CLEAR (CLEAR); BILIRUBIN,URINE NEGATIVE (NEGATIVE); COLOR,URINE COLORLESS (YELLOW); GLUCOSE, URINE (UA) NEGATIVE (NEGATIVE); KETONES,URINE NEGATIVE (NEGATIVE); LEUKOCYTE ESTERASE ,URINE NEGATIVE Leu/uL (NEGATIVE); NITRATE,URINE NEGATIVE (NEGATIVE); OCCULT BLOOD,URINE MODERATE (NEGATIVE); PH,URINE 6.5 (5.0-8.0); PROTEIN,URINE NEGATIVE (NEGATIVE); UROBILINOGEN,URINE 0.2 mg/dL (0.2-1.0)
[2022-04-21 00:57] LABS: MUCUS,URINE RARE LPF (None Seen)
[2022-04-21 07:18] VITALS: BP 175/68
== END 2022-04-21 07:53 | disposition home or self-care (01) ==
LOC: EDH 23:14
DX: R10.31 Right lower quadrant pain (principal); R10.32 Left lower quadrant pain; I10 Essential (primary) hypertension; Z79.899 Other long term (current) drug therapy; Z88.6 Allergy status to analgesic agent; Z90.49 Acquired absence of other specified parts of digestive tract
CPT/HCPCS: 36415; 74176; 80053; 81001; 85025

== ENCOUNTER 2024-05-23 10:03 | Emergency (ER) | payer MEDICARE ==
[~2024-05-23] VITALS: Ht 160 cm; Wt 79.4 kg
[~2024-05-23 10:03] MED LIST changes: -LOSA100T58 PO; +LOSA100T59 PO; +ROPI4TAB41 PO; -ROPI4TAB6 PO; -ROSU10TA28 PO; +ROSU10TA72 PO
[2024-05-23 11:12] LABS: BASOPHILS # (AUTO) 0.03 K/uL (0.00-0.20); BASOPHILS % (AUTO) 0.4 % (0.0-5.0); EOSINOPHILS # (AUTO) 0.12 K/uL (0.00-0.70); EOSINOPHILS % (AUTO) 1.8 % (0.0-8.0); HEMATOCRIT 37.8 % (36-48); IMMATURE GRANULOCYTE ABSOLUTE 0.01 K/uL (0-1); LYMPHOCYTES # (AUTO) 1.7 K/uL (1.0-4.8); MEAN CORPUSCULAR HEMOGLOBIN 31.7 pg (27.0-33.0); MEAN CORPUSCULAR HGB CONC 33.9 g/dL (32.0-36.0); MEAN CORPUSCULAR VOLUME 93.6 fL (79-99); MONOCYTES # (AUTO) 0.5 K/uL (0.1-1.0); MONOCYTES % (AUTO) 6.7 % (3.0-13.0); NEUTROPHILS # (AUTO) 4.5 K/uL (1.8-7.7); PLATELET COUNT (AUTO) 217 K/uL (130-400); RED BLOOD CELL COUNT(AUTO) 4.04 MIL/uL (4.00-5.50); RED CELL DISTRIBUTION WIDTH 12.8 % (11.0-15.5); WHITE BLOOD COUNT (AUTO) 6.8 K/uL (4.8-10.8)
[2024-05-23 11:21] LABS: CREATININE 1.1 mg/dL (0.5-1.0); POTASSIUM 4.3 mmol/L (3.5-5.1)
[2024-05-23] MEDS: PANTOPrazole 40 MG/VIAL IVP STA (12:19)
[2024-05-23] MEDS: 0.9%NACL 1000ML 1,000 ML IV STA (12:19)
[2024-05-23 14:05] LABS: APPEARANCE,URINE CLEAR (CLEAR); BILIRUBIN,URINE NEGATIVE (NEGATIVE); COLOR,URINE COLORLESS (YELLOW); GLUCOSE, URINE (UA) NEGATIVE (NEGATIVE); KETONES,URINE NEGATIVE (NEGATIVE); LEUKOCYTE ESTERASE ,URINE 75 Leu/uL (NEGATIVE); NITRATE,URINE NEGATIVE (NEGATIVE); OCCULT BLOOD,URINE SMALL (NEGATIVE); PROTEIN,URINE NEGATIVE (NEGATIVE); UROBILINOGEN,URINE 0.2 mg/dL (0.2-1.0)
[2024-05-23 14:14] LABS: ADD UA MICROSCOPIC YES
[2024-05-23 14:22] LABS: RBC,URINE 0-1 /HPF (0-1)
[2024-05-23] MEDS ORDERED: PANT40TA55 PO (14:56)
[2024-05-23] MEDS: MAG/ALUM/SIMETH 30 ML UDCUP PO ONE (15:03)
[2024-05-23] MEDS: DICYCLOMINE HCL 10 MG/5 ML ML PO ONE (15:03)
[2024-05-23] MEDS: LIDOCAINE HCL 2% VISCOUS 15 ML UDCUP PO ONE (15:03)
[2024-05-23 15:38] VITALS: BP 154/66; PULSE 59; RESP 16; TEMP 97.3; O2SAT 99
== END 2024-05-23 15:40 | disposition home or self-care (01) ==
LOC: EDH 10:03
DX: E86.0 Dehydration (principal); R10.13 Epigastric pain; E03.9 Hypothyroidism, unspecified; E78.00 Pure hypercholesterolemia, unspecified; I11.9 Hypertensive heart disease without heart failure; K21.9 Gastro-esophageal reflux disease without esophagitis; Z79.890 Hormone replacement therapy; Z79.899 Other long term (current) drug therapy; Z88.6 Allergy status to analgesic agent; Z90.49 Acquired absence of other specified parts of digestive tract; Z88.8 Allergy status to other drugs, medicaments and biological substances; Z98.890 Other specified postprocedural states
CPT/HCPCS: 99285; 96374; 96361; 71045; 84484; 80048; 85025; 87086; 81001; 36415; 93005; J7030; J2470